=== PATIENT | male | born 1970 | race African-American/Black ===

== ENCOUNTER 2018-11-23 00:26 | Emergency (ER) | payer OTHER ==
[~2018-11-23] VITALS: Ht 170.2 cm; Wt 78.0 kg
[2018-11-23 01:03] LABS: AMP/METHAMP POSITIVE (Negative); BARBITURATES Negative (Negative); BENZODIAZEPINES Negative (Negative); COCAINE POSITIVE (Negative); METHADONE Negative (Negative); OPIATES Negative (Negative); PCP Negative (Negative)
[2018-11-23 01:10] LABS: ABSOLUTE NEUTROPHILS 9.5 thou/uL (1.4-8.2); BASOPHILS 0.4 % (0.0-2.0); EOSINOPHILS 0.2 % (0.0-3.0); HEMATOCRIT 43.1 % (42.0-52.0); HEMOGLOBIN 15.2 gm/dL (14.0-18.0); LYMPHOCYTES 18.1 % (24.0-44.0); MCHC 35.2 g/dL (28.0-37.0); MCV 87.9 fL (80.0-100.0); MONOCYTES 6.5 % (1.0-8.0); PLATELET COUNT 370 thou/uL (150-400); POLYS 74.8 % (36.0-66.0); RDW 13.3 % (10.5-14.5); WBC 12.7 thou/uL (4.0-11.0)
[2018-11-23 01:17] LABS: CALCIUM 8.7 mg/dL (8.5-10.1); CREATININE 0.9 mg/dL (0.7-1.3); POTASSIUM 3.5 mmol/L (3.5-5.1)
[2018-11-23 01:23] LABS: ALBUMIN 4.1 g/dL (3.4-5.0); TOTAL BILIRUBIN 0.2 mg/dL (<0.1-1.0); TOTAL PROTEIN 7.3 g/dL (6.4-8.2)
[2018-11-23 01:35] LABS: URINE BILIRUBIN NEGATIVE (Negative); URINE BLOOD NEGATIVE (Negative); URINE CLARITY CLEAR; URINE COLOR YELLOW; URINE GLUCOSE-RANDOM* NEGATIVE (Negative); URINE KETONES NEGATIVE (Negative); URINE LEUKOCYTES-REFLEX NEGATIVE (Negative); URINE NITRITE-REFLEX NEGATIVE (Negative); URINE PROTEIN (DIPSTICK) NEGATIVE (Negative); URINE UROBILINOGEN 0.2 E.U./dl (0.2-1.0)
[2018-11-23] MEDS ORDERED: PROZAC 20 MG20 MG PO (02:03)
[2018-11-23] MEDS ORDERED: QUETIAPINE FUM100 MG PO (02:03)
[2018-11-23] MEDS ORDERED: DILANTIN100 MG PO (02:03)
[2018-11-23 16:35] VITALS: BP 107/65
--- NOTE | 2018-11-24 21:57 | EKG ---
[place] [address] [facility] [place] [address] ELECTROCARDIOGRAM REPORT Name: ALBERTO VILLALOBOS Room #: [facility] RUY Lowery#: [id number] Admission: 11/23/18 Attend Phys: Discharge: 11/23/18 Date of : 70 Report #: [id number] THIS REPORT FOR: //name// [facility] ED Test Date: 2018-11-23 Test Time: 01:16:23 Pat Name: ALBERTO VILLALOBOS Department: Room: Gender: Band Leader: VEGA : 1970 Requested By: Robby Gonzalez Order Number: [id number] MD: Efra Headley Measurements Intervals [place] Rate: 103 P: 31 [place]: 168 QRS: 46 QRSD: 96 T: 16 QT: 345 QTc: 452 Interpretive Statements Sinus tachycardia RSR' in V1 or V2, probably normal variant Probable left ventricular hypertrophy No previous ECG available for comparison Electronically Signed On 11-24-2018 21:56:53 FILM ARCHIVIST by Efra Headley [email or web address] <ELECTRONICALLY SIGNED> By: Efra Headley MD 11/24/18 [id number] Efra Headley MD /[email or web address]
== END 2018-11-23 16:38 ==
LOC: ER 00:26
PROVIDERS: Emergency Medicine
DX: R45.851 Suicidal ideations (principal); F32.9 Major depressive disorder, single episode, unspecified; F14.10 Cocaine abuse, uncomplicated; R45.850 Homicidal ideations; F15.10 Other stimulant abuse, uncomplicated; F10.129 Alcohol abuse with intoxication, unspecified; F19.29 Other psychoactive substance dependence with unspecified psychoactive substance-induced disorder; Z91.14 Patient's other noncompliance with medication regimen